=== PATIENT | female | born 1935 | race Caucasian/White ===

== ENCOUNTER 2021-08-08 18:39 | Inpatient (IN) ==
[2021-08-11] MEDS ORDERED: Ipratropium/Albuterol Neb 3 ML IH PRN (17:01)
[2021-08-11] MEDS ORDERED: Ondansetron ODT 4 MG TAB.RAPDIS SL PRN (17:02)
[2021-08-11] MEDS: *HR* Heparin 5,000 UNIT/ML VIAL SQ SCH (19:07)
[2021-08-11] MEDS: Folic Acid 1 MG TABLET PO SCH (21:04)
[2021-08-11] MEDS: Acetaminophen 325 MG TABLET PO PRN (21:04)
[2021-08-11] MEDS: Budesonide/Formoterol 160/4.5 1 PUFF INH IH SCH (22:26)
[2021-08-12] MEDS: *HR* Heparin 5,000 UNIT/ML VIAL SQ SCH ×2 (06:15→16:43)
[2021-08-12 07:00] LABS: Basophils % 0.2 %; Eosinophils # 0.1 K/mcL (0.0-0.6); Eosinophils % 0.9 %; Hematocrit 36.2 % (35.3-44.9); Hemoglobin 11.8 g/dL (11.5-15.4); Immature Granulocytes % 1.3 % (0-4); Lymphocytes % 18.7 %; Mean Corpuscular HGB Conc 32.6 g/dL (31.6-35.5); Mean Corpuscular Hemoglobin 29.9 pg (28.0-33.3); Mean Corpuscular Volume 91.9 fL (83.0-100.0); Mean Platelet Volume 9.1 fL (9.4-12.4); Monocytes # 1.1 K/mcL (0.0-1.3); Monocytes % 10.3 %; Neutrophils # 7.3 K/mcL (1.6-8.9); Platelet Count 332 K/mcL (140-400); Red Blood Count 3.94 M/mcL (3.82-4.97); Red Cell Distribution Width 14.2 % (11.5-14.5); Segmented Neutrophils % 68.6 %; White Blood Count 10.6 K/mcL (4.3-11.1)
[2021-08-12 07:20] LABS: BUN/Creatinine Ratio 40 (6-26); Blood Urea Nitrogen 26 mg/dL (8-23); Calcium 8.6 mg/dL (8.6-10.3); Carbon Dioxide 30 mEq/L (23-29); Chloride 100 mEq/L (98-107); Glucose 92 mg/dL (70-105); Osmolality,Calculated 282 (280-300); Potassium 4.4 mEq/L (3.5-5.1); Sodium 134 mEq/L (136-145); eGFR For African Americans > 60 (> 60); eGFR For Non-African Americans > 60 (> 60)
[2021-08-12] MEDS ORDERED: NON-FORMULARY MEDICATION 1 EACH EACH (Vit C/E/Zn/Coppr/Lutein/Zeaxan [Preservision Areds 2 PO SCH (09:00)
[2021-08-12] MEDS: Budesonide/Formoterol 160/4.5 1 PUFF INH IH SCH ×2 (10:56→21:44)
[2021-08-12] MEDS: amLODIPine 5 MG TABLET PO SCH (11:39)
[2021-08-12] MEDS: Multivit/Ca/Min/Fe/FA 1 TAB TABLET PO SCH (11:39)
[2021-08-12] MEDS: Folic Acid 1 MG TABLET PO SCH ×2 (11:39→20:19)
[2021-08-12] MEDS: Nicotine 21 MG PATCH.TD24 TD SCH (11:39)
[2021-08-12] MEDS: Methotrexate PFS 25 MG/ML VIAL IM SCH (12:12)
[2021-08-13] MEDS: *HR* Heparin 5,000 UNIT/ML VIAL SQ SCH ×2 (06:29→16:51)
[2021-08-13] MEDS: Folic Acid 1 MG TABLET PO SCH ×2 (08:45→20:34)
[2021-08-13] MEDS: Multivit/Ca/Min/Fe/FA 1 TAB TABLET PO SCH (08:46)
[2021-08-13] MEDS: amLODIPine 5 MG TABLET PO SCH (08:46)
[2021-08-13] MEDS: Nicotine 21 MG PATCH.TD24 TD SCH (08:46)
[2021-08-13] MEDS: Budesonide/Formoterol 160/4.5 1 PUFF INH IH SCH ×2 (10:40→20:56)
[2021-08-13] MEDS ORDERED: Carbamide Peroxide 150 DROP/15 ML BOTTLE RIGHT EAR ONE (18:26)
[2021-08-13] MEDS ORDERED: Carbamide Peroxide 150 DROP/15 ML BOTTLE LEFT EAR ONE (18:26)
[2021-08-14] MEDS: *HR* Heparin 5,000 UNIT/ML VIAL SQ SCH ×2 (05:15→17:24)
[2021-08-14] MEDS: Multivit/Ca/Min/Fe/FA 1 TAB TABLET PO SCH (09:24)
[2021-08-14] MEDS: Folic Acid 1 MG TABLET PO SCH ×2 (09:24→20:24)
[2021-08-14] MEDS: Nicotine 21 MG PATCH.TD24 TD SCH (09:24)
[2021-08-14] MEDS: amLODIPine 5 MG TABLET PO SCH (09:24)
[2021-08-14] MEDS: Budesonide/Formoterol 160/4.5 1 PUFF INH IH SCH ×2 (09:51→21:47)
[2021-08-14] MEDS: Fluticasone Propionate Nasal 50 MCG/SPRAY BOTTLE NS SCH (14:35)
[2021-08-15] MEDS: *HR* Heparin 5,000 UNIT/ML VIAL SQ SCH ×2 (05:09→17:49)
[2021-08-15] MEDS: Multivit/Ca/Min/Fe/FA 1 TAB TABLET PO SCH (09:12)
[2021-08-15] MEDS: Nicotine 21 MG PATCH.TD24 TD SCH (09:12)
[2021-08-15] MEDS: amLODIPine 5 MG TABLET PO SCH (09:12)
[2021-08-15] MEDS: Folic Acid 1 MG TABLET PO SCH ×2 (09:12→21:09)
[2021-08-15] MEDS: Fluticasone Propionate Nasal 50 MCG/SPRAY BOTTLE NS SCH (09:13)
[2021-08-15] MEDS: Budesonide/Formoterol 160/4.5 1 PUFF INH IH SCH ×2 (09:22→21:30)
[2021-08-16] MEDS: *HR* Heparin 5,000 UNIT/ML VIAL SQ SCH ×2 (06:08→17:10)
[2021-08-16] MEDS: Multivit/Ca/Min/Fe/FA 1 TAB TABLET PO SCH (08:55)
[2021-08-16] MEDS: amLODIPine 5 MG TABLET PO SCH (08:56)
[2021-08-16] MEDS: Folic Acid 1 MG TABLET PO SCH ×2 (08:56→20:14)
[2021-08-16] MEDS: Nicotine 21 MG PATCH.TD24 TD SCH (08:56)
[2021-08-16] MEDS: Fluticasone Propionate Nasal 50 MCG/SPRAY BOTTLE NS SCH (08:56)
[2021-08-16] MEDS: Budesonide/Formoterol 160/4.5 1 PUFF INH IH SCH ×2 (09:41→21:15)
[2021-08-17] MEDS: *HR* Heparin 5,000 UNIT/ML VIAL SQ SCH ×2 (05:23→17:14)
[2021-08-17] MEDS: amLODIPine 5 MG TABLET PO SCH (08:14)
[2021-08-17] MEDS: Nicotine 21 MG PATCH.TD24 TD SCH (08:14)
[2021-08-17] MEDS: Folic Acid 1 MG TABLET PO SCH ×2 (08:14→20:08)
[2021-08-17] MEDS: Multivit/Ca/Min/Fe/FA 1 TAB TABLET PO SCH (08:14)
[2021-08-17] MEDS: Fluticasone Propionate Nasal 50 MCG/SPRAY BOTTLE NS SCH (08:16)
[2021-08-17] MEDS: Budesonide/Formoterol 160/4.5 1 PUFF INH IH SCH (10:39)
[2021-08-17] MEDS: *HR* HYDROcodone/Acet 5/325 mg TABLET PO PRN (20:07)
[2021-08-18] MEDS: Budesonide/Formoterol 160/4.5 1 PUFF INH IH SCH ×3 (02:20→21:49)
[2021-08-18] MEDS: *HR* Heparin 5,000 UNIT/ML VIAL SQ SCH ×2 (05:24→20:36)
[2021-08-18] MEDS: Nicotine 21 MG PATCH.TD24 TD SCH (09:00)
[2021-08-18] MEDS: Multivit/Ca/Min/Fe/FA 1 TAB TABLET PO SCH (09:00)
[2021-08-18] MEDS: Folic Acid 1 MG TABLET PO SCH ×2 (09:00→20:37)
[2021-08-18] MEDS: amLODIPine 5 MG TABLET PO SCH (09:00)
[2021-08-18] MEDS: Fluticasone Propionate Nasal 50 MCG/SPRAY BOTTLE NS SCH (09:00)
[2021-08-18] MEDS: *HR* HYDROcodone/Acet 5/325 mg TABLET PO PRN (20:37)
[2021-08-19] MEDS: *HR* Heparin 5,000 UNIT/ML VIAL SQ SCH ×2 (06:18→16:58)
[2021-08-19] MEDS: Fluticasone Propionate Nasal 50 MCG/SPRAY BOTTLE NS SCH (08:26)
[2021-08-19] MEDS: amLODIPine 5 MG TABLET PO SCH (08:26)
[2021-08-19] MEDS: Folic Acid 1 MG TABLET PO SCH ×2 (08:26→20:39)
[2021-08-19] MEDS: Multivit/Ca/Min/Fe/FA 1 TAB TABLET PO SCH (08:26)
[2021-08-19] MEDS: Nicotine 21 MG PATCH.TD24 TD SCH (08:27)
[2021-08-19] MEDS: Budesonide/Formoterol 160/4.5 1 PUFF INH IH SCH ×2 (08:33→21:46)
[2021-08-19] MEDS: Methotrexate PFS 25 MG/ML VIAL IM SCH (12:22)
[2021-08-19] MEDS: Acetaminophen 325 MG TABLET PO PRN (16:58)
[2021-08-20] MEDS: *HR* Heparin 5,000 UNIT/ML VIAL SQ SCH ×2 (05:07→17:47)
[2021-08-20] MEDS: Multivit/Ca/Min/Fe/FA 1 TAB TABLET PO SCH (08:08)
[2021-08-20] MEDS: Nicotine 21 MG PATCH.TD24 TD SCH (08:09)
[2021-08-20] MEDS: amLODIPine 5 MG TABLET PO SCH (08:09)
[2021-08-20] MEDS: Folic Acid 1 MG TABLET PO SCH ×2 (08:09→20:08)
[2021-08-20] MEDS: Fluticasone Propionate Nasal 50 MCG/SPRAY BOTTLE NS SCH (08:11)
[2021-08-20 08:22] LABS: Basophils % 0.2 %; Eosinophils # 0.1 K/mcL (0.0-0.6); Eosinophils % 1.5 %; Hematocrit 33.6 % (35.3-44.9); Hemoglobin 11.1 g/dL (11.5-15.4); Immature Granulocytes % 0.4 % (0-4); Lymphocytes % 18.8 %; Mean Corpuscular Hemoglobin 30.3 pg (28.0-33.3); Mean Corpuscular Volume 91.8 fL (83.0-100.0); Mean Platelet Volume 9.8 fL (9.4-12.4); Monocytes # 0.7 K/mcL (0.0-1.3); Monocytes % 12.7 %; Neutrophils # 3.5 K/mcL (1.6-8.9); Platelet Count 230 K/mcL (140-400); Red Blood Count 3.66 M/mcL (3.82-4.97); Red Cell Distribution Width 14.6 % (11.5-14.5); Segmented Neutrophils % 66.4 %; White Blood Count 5.3 K/mcL (4.3-11.1)
[2021-08-20 08:45] LABS: BUN/Creatinine Ratio 36 (6-26); Blood Urea Nitrogen 24 mg/dL (8-23); Carbon Dioxide 27 mEq/L (23-29); Chloride 101 mEq/L (98-107); Glucose 95 mg/dL (70-105); Osmolality,Calculated 282 (280-300); Potassium 4.2 mEq/L (3.5-5.1); Sodium 134 mEq/L (136-145); eGFR For African Americans > 60 (> 60); eGFR For Non-African Americans > 60 (> 60)
[2021-08-20] MEDS: Budesonide/Formoterol 160/4.5 1 PUFF INH IH SCH ×2 (10:59→21:18)
[2021-08-21] MEDS: *HR* Heparin 5,000 UNIT/ML VIAL SQ SCH (05:48)
[2021-08-21] MEDS: Folic Acid 1 MG TABLET PO SCH (07:46)
[2021-08-21] MEDS: Multivit/Ca/Min/Fe/FA 1 TAB TABLET PO SCH (07:46)
[2021-08-21] MEDS: amLODIPine 5 MG TABLET PO SCH ×2 (07:46→07:50)
[2021-08-21] MEDS: Fluticasone Propionate Nasal 50 MCG/SPRAY BOTTLE NS SCH (07:48)
[2021-08-21] MEDS: Nicotine 21 MG PATCH.TD24 TD SCH (07:48)
[2021-08-21 07:51] VITALS: BP 134/68; PULSE 85; TEMP 98.4
[2021-08-21] MEDS: Budesonide/Formoterol 160/4.5 1 PUFF INH IH SCH (11:01)
[2021-08-21 14:42] VITALS: RESP 16; O2SAT 99
== END 2021-08-21 12:36 | disposition home health service (06) | DRG 189 ==
LOC: INPPIK 08-11 18:35
PROVIDERS: ADMIT Family Medicine; ATTEND Family Medicine